=== PATIENT | female | born 1975 | race Caucasian/White ===

== ENCOUNTER → 2017-03-30 | Outpatient (CLI) | payer BC ==
[~2017-03-30] MED LIST: NATA1INJ INJ; OXYB5TAB74 PO; VENL75CA PO; [UNRECOGNIZED DRUG - CODE] PO
== END | disposition home or self-care (01) ==
LOC: C.LABMFLN 11:14
PROVIDERS: ATTEND Family Medicine
DX: N39.0 Urinary tract infection, site not specified (principal)

== ENCOUNTER → 2017-07-27 | Outpatient (CLI) | payer BC ==
[~2017-07-27] MED LIST changes: +DTR/5 PO; -OXYB5TAB74 PO; +[UNRECOGNIZED DRUG - CODE] PO; -[UNRECOGNIZED DRUG - CODE] PO
--- NOTE | 2017-07-27 12:04 | DIAGNOSTIC IMAGING REPORT ---
MRI OF THE BRAIN WITHOUT CONTRAST CLINICAL HISTORY: G35 Multiple sclerosis COMPARISON STUDY: None FINDINGS: Sagittal T1, axial diffusion, proton density and T2 weighted axial, coronal FLAIR, and axial T1-weighted images were acquired. No intra or extra-axial mass lesions are visualized Axial diffusion-weighted images reveal no evidence of acute or subacute infarction. A few scattered foci of increased signal on diffusion-weighted images are felt to be secondary to T2 shine through. There is no evidence of ventricular dilatation. Proton density T2-weighted and FLAIR images reveal foci of increased T2 signal within the periventricular and subcortical white matter. These include a lesion involving the corpus callosum. Several of these lesions have an orientation perpendicular to the ependymal surface, and are consistent with the clinical diagnosis of multiple sclerosis. There are no abnormal flow voids. IMPRESSION: 1. Scattered white matter lesions, having a distribution consistent with the clinical history of multiple sclerosis. Electronically signed by: Dmitri Sales M.D. 07/27/2017 12:02 PM Dictated Date/Time: 07/27/2017 11:58 AM
--- NOTE | 2017-07-27 12:31 | DIAGNOSTIC IMAGING REPORT ---
MRI CERVICAL WITHOUT CONTRAST CLINICAL HISTORY: G35 Multiple sclerosis TECHNIQUE: Sagittal and axial T1, T2 and STIR images were obtained. COMPARISON STUDY: 06/16/2016 There are no suspicious areas of marrow replacement. There is diffuse increased signal within the cervical spinal cord is visualized on inversion recovery images. This remain similar to the preceding study. The spinal cord remains slightly thinned. There is a T2 bright 1 cm right lobe thyroid nodule. C2-3: There is no evidence of disc bulge or focal herniation. There is no spinal or foraminal stenosis. C3-4: There is a small right paracentral disc protrusion with slight effacement of the anterior thecal sac. There is no significant foraminal narrowing C4-5: There is a small central disc protrusion with mild effacement of the anterior thecal sac. There is an element of bilateral foraminal narrowing C5-6 :There is a mild circumferential disc bulge. There is no significant spinal stenosis. There is minimal bilateral foraminal narrowing C6-7: There is a mild circumferential disc bulge. There is no significant spinal stenosis. There is no significant foraminal narrowing C7-T1: There is no evidence of disc bulge or focal herniation. There is no evidence of spinal or foraminal stenosis. IMPRESSION: 1. Diffuse increased signal throughout the cervical spinal cord (as visualized in the recovery images), unchanged from the preceding study. 2. Moderate multilevel spondylitic changes, similar to the preceding study 3. Stable right lobe thyroid nodule Electronically signed by: Dmitri Sales M.D. 07/27/2017 12:30 PM Dictated Date/Time: 07/27/2017 12:24 PM
[2017-07-27 13:27] LABS: BASO % 0.2 %; BASO ABS # 0.02 K/uL (0-0.2); COMPLETE YES; EOS % 0.4 %; HEMATOCRIT 38.5 % (37-47); IG% 0.2 %; LYMPH % 32.7 %; LYMPH ABS # 3.21 K/uL (1.2-3.4); MEAN CELL VOLUME 94.6 fL (80-100); MEAN CORPUSCULAR HEMOGLOBIN 31.7 pg (25-34); MEAN CORPUSCULAR HGB CONC 33.5 g/dl (32-36); MEAN PLATELET VOLUME 10.2 fL (7.4-10.4); MONO % 5.6 %; NEUT % 60.9 %; PLATELET COUNT 197 K/uL (130-400); RED BLOOD COUNT 4.07 M/uL (4.2-5.4); WHITE BLOOD COUNT 9.83 K/uL (4.8-10.8)
[2017-07-27 14:03] LABS: ALT/SGPT 47 U/L (12-78); AST/SGOT 27 U/L (15-37); BLOOD UREA NITROGEN 8 mg/dl (7-18); BUN/CREATININE RATIO 16.7 (10-20); CALCIUM 8.7 mg/dl (8.5-10.1); CARBON DIOXIDE 27 mmol/L (21-32); CHLORIDE 105 mmol/L (98-107); CREATININE 0.47 mg/dl (0.60-1.20); GLUCOSE 89 mg/dl (70-99); POTASSIUM 4.2 mmol/L (3.5-5.1); SODIUM 140 mmol/L (136-145)
[2017-07-27 14:05] LABS: ALB/GLOB RATIO 1.1 (0.9-2); ALKALINE PHOSPHATASE 85 U/L (45-117)
[2017-07-30 21:48] LABS: JCV ANTIBODY POSITIVE; JCV INDEX 0.44
== END | disposition home or self-care (01) ==
LOC: C.MRIBC 09:57
PROVIDERS: ATTEND Psychiatry & Neurology Neurology
DX: G35 Multiple sclerosis (principal); M47.892 Other spondylosis, cervical region; E04.1 Nontoxic single thyroid nodule

== ENCOUNTER → 2017-10-02 | Outpatient (CLI) | payer BC | END | disposition home or self-care (01) | LOC: C.LABMFLN 11:00 | PROVIDERS: ATTEND Psychiatry & Neurology Neurology | DX: G35 Multiple sclerosis (principal) ==